=== PATIENT | female | born 1995 | race African-American/Black ===

== ENCOUNTER 2017-01-27 11:50 | Emergency (ER) | payer OTHER ==
[~2017-01-27] VITALS: Ht 165.1 cm; Wt 75.4 kg
[~2017-01-27 11:50] MED LIST: ALPR.25 PO; BENT20TA PO; CYMB60CA PO; NORC5TAB PO; ZOFR4TAB3 SL; birth control pill PO
[2017-01-27 11:57] VITALS: BP 122/81; PULSE 84; RESP 18; TEMP 97.8; O2SAT 97
--- NOTE | 2017-01-27 12:47 | PD ---
HPI Chief Complaint: Musculoskeletal Complaint Time Seen by Provider: 12:47 Travel History International Travel<30 days: No Contact w/Intl Traveler<30days: No Traveled to known affect area: No History of Present Illness HPI 21-year-old Afro-Iraqi female presents the emergency department after being "kicked by a horse" 6 days ago while riding with a friend. The patient was on a horse when the horse bucked and kicked her in the medial foot and ankle. This is the first time the patient sought medical attention for this issue. Patient continues to have pain along the medial ankle and medial arch of the left foot. She can bear weight but with difficulty. Is worse in the morning and if she respiratory. Time. Patient has had it wrapped has been taking over- the-counter analgesia without much improvement. Patient states the pain with ambulation at worst is an 8/10. Currently is 4/10. She is allergic to erythromycin. PFSH Past Medical History Asthma: Yes Anxiety: Yes Depression: Yes Heart Rhythm Problems: Yes ("CARDIO VENTRICULAR TACHYCARDIA") Cardiovascular Problems: Yes ("HEART VALVE PROBLEMS") Diabetes: Yes (DIET CONTROL) Diminished Hearing: No GERD: Yes Hypertension: No (states had it a brief time no meds) Respiratory: Yes (ASTHMA) Integumentary: Yes (ACNE) Immunizations Current: Yes ?: Not LMP: 01/14/17 : 1 Para: 0 Miscarriage: 1 Past Surgical History Oral Surgery: Yes (WISDOM TEETH) Social History Alcohol Use: No Tobacco Use: No Substance Use: No Allergies-Medications (Allergen,Severity, Reaction): Coded Allergies: Erythromycin (Verified Allergy, Severe, " BABY,DON'T REMEMBER ALLERGY" PER MOTHER'S REPORT, 01/27/17) Reported Meds & Prescriptions Reported Meds & Active Scripts Active Reported Cymbalta DR (Duloxetine HCl) 60 Mg Capdr 60 Mg PO HS [ control pill] Unknown Strength Unknown Dose PO DAILY Review of Systems Except as stated in HPI: all other systems reviewed are Neg General / Constitutional: No: Fever Eyes: No: Visual changes HENT: No: Headaches Cardiovascular: No: Chest Pain or Discomfort Respiratory: No: Shortness of Breath Gastrointestinal: No: Abdominal Pain Genitourinary: No: Dysuria Musculoskeletal: No: Pain Skin: No Rash Neurologic: No: Weakness Psychiatric: No: Depression Endocrine: No: Polydipsia Hematologic/Lymphatic: No: Easy Bruising Physical Exam Narrative GENERAL: Patient appears in no acute distress. SKIN: Warm and dry. Normal color. Normal turgor. No significant signs of trauma. HEAD: Atraumatic. Normocephalic. EYES: Pupils equal and round. No scleral icterus. No injection or drainage. ENT: No nasal bleeding or discharge. Mucous membranes pink and moist. Pharynx is normal. NECK: Trachea midline. Supple. CARDIOVASCULAR: Regular rate and rhythm. RESPIRATORY: No accessory muscle use. Clear to auscultation. Breath sounds equal bilaterally. MUSCULOSKELETAL: Extremities without clubbing, cyanosis, or edema. No obvious deformities. Left foot actually appears normal without significant swelling, ecchymosis, or signs of deformity. Patient has pain with palpation along the left medial malleolus extending into the left medial foot and arch. Range of motion of the left ankle and foot is limited secondary to pain. NEUROLOGICAL: Awake and alert. No obvious cranial nerve deficits. Motor grossly within normal limits. Five out of 5 muscle strength in the arms and legs. Normal speech. PSYCHIATRIC: Appropriate mood and affect; insight and judgment normal. Data Data Last Documented VS Vital Signs Date Time Temp Pulse Resp B/P Pulse Ox O2 Delivery O2 Flow Rate FiO2 01/27/17 11:57 97.8 84 18 122/81 97 Orders Ankle, Complete ([id number]) (01/27/17 12:50) Foot, Complete ([id number]) (01/27/17 12:50) Ice/Cold Pack (01/27/17 12:50) [facility] Medical Decision Making Medical Screen Exam Complete: Yes Emergency Medical Condition: Yes Differential Diagnosis Ankle contusion. Foot contusion. Possible fracture. Plantar fasciitis. Narrative Course Patient is medically stable at time of exam. X-rays of the left foot and ankle are obtained. X-ray shows no acute findings per radiologist. Patiently treated for plantar fasciitis. Patient is given ibuprofen 600 mg 4 times a day #40. Patient is given Tylenol 500 mg 2 tabs every 6 hours when necessary pain #60. Patient is to use heat and ice and gentle stretching over the next 2 weeks. Patient is to wear supportive shoes with a proper arch at all times. Patient is to follow with local primary care physician or herbicide sprayer if symptoms continue or worsen. Diagnosis Primary Impression: Contusion of left foot Qualified Code: S90.32XA - Contusion of left foot, initial encounter Additional Impression: Plantar fascia syndrome Referrals: [facility] Primary Care Physician Patient Instructions: General Instructions, Plantar Fasciitis (GEN), Plantar Fasciitis Exercises (GEN) Departure Forms: Work Release Enter return to work date: Jan 28, 2017 Additional Instructions: X-ray shows no acute findings per radiologist. Patiently treated for plantar fasciitis. Patient is given ibuprofen 600 mg 4 times a day #40. Patient is given Tylenol 500 mg 2 tabs every 6 hours when necessary pain #60. Patient is to use heat and ice and gentle stretching over the next 2 weeks. Patient is to wear supportive shoes with a proper arch at all times. Patient is to follow with local primary care physician or herbicide sprayer if symptoms continue or worsen. Med/Other Pt SpecificInfo: Prescription(s) given Disposition: 01 DISCHARGE HOME Condition: Stable Keith Ferro Jan 27, 2017 12:47 Keith Ferro Jan 27, 2017 12:47
--- NOTE | 2017-01-27 13:25 | RADHPO ---
EXAM DATE/TIME: 01/27/2017 13:02 [facility] COMPARISON: No previous studies available for comparison. INDICATIONS : Left ankle pain post horseback riding accident. MEDICAL HISTORY : None. SURGICAL HISTORY : None. ENCOUNTER: Initial ACUITY: 3 days PAIN SCORE: 5/10 LOCATION: Left ankle FINDINGS: 3 views the left ankle demonstrate no fracture or dislocation. Ankle mortise is intact. Mineralizatio n is within normal limits and there is no significant arthropathy. No soft tissue abnormality or radi opaque foreign body is identified. CONCLUSION: No acute left ankle abnormality is identified. Eric Bland MD on January 27, 2017 at 13:23 Board Certified Radiologist. This report was verified electronically.
--- NOTE | 2017-01-27 13:27 | RADHPO ---
EXAM DATE/TIME: 01/27/2017 13:07 [facility] COMPARISON: No previous studies available for comparison. INDICATIONS : Left foot pain post horseback riding accident. MEDICAL HISTORY : None. SURGICAL HISTORY : None. ENCOUNTER: Initial ACUITY: 3 days PAIN SCORE: 5/10 LOCATION: Left foot FINDINGS: Three views of the left foot demonstrate no fracture or dislocation. The Lisfranc joint appears intac t. Mineralization is within normal limits and there is no significant arthropathy. No soft tissue abn ormality or radiopaque foreign body is identified. CONCLUSION: No acute left foot abnormality is identified. Eric Bland MD on January 27, 2017 at 13:24 Board Certified Radiologist. This report was verified electronically.
[2017-01-27] MEDS ORDERED: IBUP-232 PO (13:32)
[2017-01-27] MEDS ORDERED: EXTR500C PO (13:32)
== END 2017-01-27 13:45 | disposition home or self-care (01) ==
LOC: PHEFT 11:50
DX: S90.32XA Contusion of left foot, initial encounter (principal); M72.2 Plantar fascial fibromatosis; J45.909 Unspecified asthma, uncomplicated; F41.8 Other specified anxiety disorders; I47.2 Ventricular tachycardia; V80.010A Animal-rider injured by fall from or being thrown from horse in noncollision accident, initial encounter; Y93.52 Activity, horseback riding; Y92.9 Unspecified place or not applicable; Y99.9 Unspecified external cause status
CPT/HCPCS: 73610; 73630; 99283

== ENCOUNTER 2017-06-22 09:40 | Emergency (ER) | payer OTHER ==
[~2017-06-22] VITALS: Ht 165.1 cm; Wt 71.0 kg
[~2017-06-22 09:40] MED LIST changes: -ALPR.25 PO; -BENT20TA PO; +EXTR500C PO; +IBUP-232 PO; -NORC5TAB PO; -ZOFR4TAB3 SL
[2017-06-22 09:47] VITALS: BP 131/77; PULSE 104; RESP 16; TEMP 98.7; O2SAT 100
[2017-06-22] MEDS ORDERED: ACETAMINOPHEN 500 MG CPLT PO ONE (10:00)
[2017-06-22] MEDS ORDERED: ACETAMINOPHEN/HYDROcodone 325 MG/5 MG TAB PO ONE (10:00)
[2017-06-22] MEDS ORDERED: IBUP-232 PO (10:16)
--- NOTE | 2017-06-22 10:16 | PD ---
HPI Chief Complaint: Injury Time Seen by Provider: 09:55 Travel History International Travel<30 days: No Contact w/Intl Traveler<30days: No Traveled to known affect area: No History of Present Illness HPI 22 yo F c/o L ankle and L knee pain. She was walking on her bed which is about 3 feet off the ground when she accidentally stepped off landing on the floor causing sudden onset right ankle pain and right knee pain as she fell forward onto the right knee. no loc or head trauma. pain is constant and severe. pt states she couldn't walk afterward. PFSH Past Medical History Asthma: Yes Anxiety: Yes Depression: Yes Heart Rhythm Problems: Yes ("CARDIO VENTRICULAR TACHYCARDIA") Cardiovascular Problems: Yes ("HEART VALVE PROBLEMS") Diabetes: Yes (DIET CONTROL) Patient Takes Glucophage: No Diminished Hearing: No GERD: Yes Hypertension: Yes (states had it a brief time no meds) Respiratory: Yes (ASTHMA) Integumentary: Yes (ACNE) Immunizations Current: Yes Tetanus Vaccination: < 5 Years Influenza Vaccination: Yes ?: Not LMP: 05/29/17 : 1 Para: 0 Miscarriage: 1 Past Surgical History Oral Surgery: Yes (WISDOM TEETH) Social History Alcohol Use: No Tobacco Use: Yes (1/2 PPD) Substance Use: No Allergies-Medications (Allergen,Severity, Reaction): Coded Allergies: Erythromycin (Verified Allergy, Unknown, Unknown, 06/22/17) Patient's mother told her she had a reaction as an . Reported Meds & Prescriptions Reported Meds & Active Scripts Active Ibuprofen 600 Mg Tab 600 Mg PO Q6H PRN Review of Systems General / Constitutional: No: Fever Musculoskeletal: Positive: Pain Physical Exam Narrative GENERAL: 22 yo F, WNWD, milder moderate distress 2/2 pain and or anxiety SKIN: Warm and dry. Trace abrasion overlying right patella. HEAD: Normocephalic. GASTROINTESTINAL: Abdomen soft, non-tender, nondistended. MUSCULOSKELETAL: No cyanosis, or edema. Swelling tenderness overlying R malleolus. Minimal tenderness overlying the right patella. 2+ dorsalis pedis bilaterally. The patient involuntarily flex and extend her toes on both sides. Data Data Last Documented VS Vital Signs Date Time Temp Pulse Resp B/P Pulse Ox O2 Delivery O2 Flow Rate FiO2 06/22/17 09:47 98.7 104 16 131/77 100 vs reviewed Orders Acetaminophen (Tylenol) (06/22/17 10:00) Acetamin-Hydrocod 325-5 Mg ([place] 5-325 (06/22/17 10:00) Ankle, Complete ([id number]) (06/22/17 09:58) Knee, Complete (4vws) (06/22/17 09:58) Splint Or Brace Apply/Monitor (06/22/17 11:08) Brace Ankle Stirrup (06/22/17 ) MDM Medical Decision Making Medical Screen Exam Complete: Yes Emergency Medical Condition: Yes Medical Record Reviewed: Yes Differential Diagnosis ankle fracture, contusion, knee fracture Narrative Course Last 24 hours Impressions Knee X-Ray 06/22/17957 Signed Impressions: Service Date/Time: Thursday, June 22, 2017 10:16 - CONCLUSION: Unremarkable examination of the right knee. Corey Crespo Jr., MD Ankle X-Ray 06/22/17957 Signed Impressions: Service Date/Time: Thursday, June 22, 2017 10:06 - CONCLUSION: Unremarkable examination of the right ankle. Corey Crespo Jr., MD Imaging reassuring. Stir-up splint applied. Return precautions discussed. Work note provided at patient's request. Diagnosis Primary Impression: Strain of ankle, right Qualified Code: S96.911A - Strain of ankle, right, initial encounter Additional Impression: Patellar contusion Qualified Code: S80.01XA - Patellar contusion, right, initial encounter Referrals: Orthopaedic Surgeon 2 days Additional Instructions: You have a choice when it comes to health care, and we are glad that you chose [facility]. Hopefully, we have met your expectations on today's visit. You are welcome to return to [facility] at any time, as we are committed to meeting the health care needs of our community. Med/Other Pt SpecificInfo: Prescription(s) given Scripts Ibuprofen 600 Mg [id number] Mg PO Q6H PRN (Pain/Inflammation) #40 TAB Prov:Gurinder Ramos MD 06/22/17 Disposition: 01 DISCHARGE HOME Condition: Stable Gurinder Ramos MD Jun 22, 2017 10:16
--- NOTE | 2017-06-22 11:17 | RADRPT ---
EXAM DATE/TIME: 06/22/2017 10:06 [facility] COMPARISON: No previous studies available for comparison. INDICATIONS : Patient fell complains of pain lateral side of Right ankle MEDICAL HISTORY : Diabetes mellitus type II. SURGICAL HISTORY : None. ENCOUNTER: Initial ACUITY: 1 day PAIN SCORE: 10/10 LOCATION: Right lateral ankle FINDINGS: Three view exam was performed of the right ankle. The bony structures are in normal alignment. No e vidence of fracture, dislocation, or soft tissue swelling. The ankle mortise is intact. No radiopaq ue foreign bodies are seen. Bony mineralization is normal. CONCLUSION: Unremarkable examination of the right ankle. Corey Crespo Jr., MD on June 22, 2017 at 11:16 Board Certified Radiologist. This report was verified electronically.
--- NOTE | 2017-06-22 11:18 | RADRPT ---
EXAM DATE/TIME: 06/22/2017 10:16 [facility] COMPARISON: No previous studies available for comparison. INDICATIONS : Right knee pain after a fall MEDICAL HISTORY : Diabetes mellitus type II. SURGICAL HISTORY : None. ENCOUNTER: Initial ACUITY: 1 day PAIN SCORE: 10/10 LOCATION: Right Knee FINDINGS: Four view examination of the right knee demonstrates no evidence of fracture or dislocation. Bony mi neralization is normal. The articular surfaces are intact. The suprapatellar soft tissues have a no rmal configuration. CONCLUSION: Unremarkable examination of the right knee. Corey Crespo Jr., MD on June 22, 2017 at 11:16 Board Certified Radiologist. This report was verified electronically.
== END 2017-06-22 11:32 | disposition home or self-care (01) ==
LOC: PHED 09:40
DX: S96.911A Strain of unspecified muscle and tendon at ankle and foot level, right foot, initial encounter (principal); S80.01XA Contusion of right knee, initial encounter; E11.9 Type 2 diabetes mellitus without complications; I10 Essential (primary) hypertension; F17.200 Nicotine dependence, unspecified, uncomplicated; Z87.09 Personal history of other diseases of the respiratory system; Z86.59 Personal history of other mental and behavioral disorders; Z86.79 Personal history of other diseases of the circulatory system; Z87.19 Personal history of other diseases of the digestive system; W17.89XA Other fall from one level to another, initial encounter
CPT/HCPCS: 73564; 73610; 99284; L1906

== ENCOUNTER 2017-10-29 13:02 | Emergency (ER) | payer OTHER ==
[~2017-10-29] VITALS: Ht 162.6 cm; Wt 73.4 kg
[~2017-10-29 13:02] MED LIST changes: -CYMB60CA PO; -EXTR500C PO; -birth control pill PO
[2017-10-29 13:08] VITALS: BP 131/71; PULSE 90; RESP 18; TEMP 99.3; O2SAT 100
[2017-10-29 13:25] LABS: GLUCOSE,URINE NEG (NEG); KETONE, URINE NEG (NEG); NITRITE,URINE NEG (NEG)
[2017-10-29 13:30] LABS: BLOOD, URINE TRACE (NEG)
[2017-10-29 13:33] LABS: METHOD OF COLLECTION CLEAN CATCH; RBC, URINE 0-3 /hpf (0-3); URINE COLOR YELLOW (YELLW/STRAW)
[2017-10-29 13:34] LABS: BACTERIA, URINE FEW /hpf; COMMENT (UR) CULT NOT INDICATED; COMMENT2 (UR) MUCOUS PRESENT; CULTURE IF INDICATED CULT NOT INDICATED
--- NOTE | 2017-10-29 13:55 | PD ---
HPI Chief Complaint: Abdominal Pain Time Seen by Provider: 13:36 Travel History International Travel<30 days: No Contact w/Intl Traveler<30days: No Traveled to known affect area: No History of Present Illness HPI The patient was seen and examined in the presence of the nurse. This patient reports that she missed her last 2 menstrual periods. She thinks she is . He's had some pelvic cramping for one day and some nausea and vomiting as well. She said 5 episodes of diarrhea today. Denies vaginal bleeding. No fever. Symptoms severity is moderate. No alleviating factors. No exacerbating factors. PFSH Past Medical History Asthma: Yes Anxiety: Yes Depression: Yes Heart Rhythm Problems: Yes ("CARDIO VENTRICULAR TACHYCARDIA") Cardiovascular Problems: Yes ("HEART VALVE PROBLEMS") Diabetes: Yes (DIET CONTROL) Patient Takes Glucophage: No Diminished Hearing: No GERD: Yes Hypertension: Yes (states had it a brief time no meds) Respiratory: Yes (ASTHMA) Integumentary: Yes (ACNE) Immunizations Current: Yes Influenza Vaccination: No ?: Unknown LMP: 09/2017 : 1 Para: 0 Miscarriage: 1 Past Surgical History Oral Surgery: Yes (WISDOM TEETH) Social History Alcohol Use: No Tobacco Use: Yes (1/2 PPD) Substance Use: No Allergies-Medications (Allergen,Severity, Reaction): Coded Allergies: erythromycin base (Unverified Allergy, Unknown, Unknown, 10/29/17) Patient's mother told her she had a reaction as an . Reported Meds & Prescriptions Reported Meds & Active Scripts Active No Active Prescriptions or Reported Medications Review of Systems General / Constitutional: No: Fever Eyes: No: Visual changes HENT: No: Headaches Cardiovascular: No: Chest Pain or Discomfort Respiratory: No: Shortness of Breath Gastrointestinal: No: Abdominal Pain Genitourinary: Positive: Pelvic Pain, Discharge, No: Dysuria Musculoskeletal: No: Pain Skin: No Rash Neurologic: No: Weakness Psychiatric: No: Depression Endocrine: No: Polydipsia Hematologic/Lymphatic: No: Easy Bruising Physical Exam Narrative GENERAL: Well-nourished, well-developed patient in no apparent distress. SKIN: Focused skin assessment reveals no rash and nodules. Skin is Warm and dry. HEAD: Atraumatic. Normocephalic. EYES: Pupils equal and round. No scleral icterus. No injection or drainage. ENT: No nasal bleeding or discharge. Mucous membranes pink and moist. NECK: Trachea midline. No JVD. CARDIOVASCULAR: Regular rate and rhythm. No murmur appreciated. RESPIRATORY: No accessory muscle use. Clear to auscultation. Breath sounds equal bilaterally. GASTROINTESTINAL: Abdomen soft, non-tender, nondistended. Hepatic and splenic margins not palpable. MUSCULOSKELETAL: No obvious deformities. No clubbing. No cyanosis. No edema. NEUROLOGICAL: Awake and alert. No obvious cranial nerve deficits. Motor grossly within normal limits. Normal speech. PSYCHIATRIC: Appropriate mood and affect; insight and judgment normal. Pelvic: Speculum exam reveals no blood. No cervical motion tenderness. No adnexal mass or tenderness. There is a scant bit of whitish discharge. Samples obtained Data Data Last Documented VS Vital Signs Date Time Temp Pulse Resp B/P (MAP) Pulse Ox O2 Delivery O2 Flow Rate FiO2 10/29/17 15:17 86 18 119/61 (80) 100 Room Air 10/29/17 13:08 99.3 Orders Orders Urinalysis - C+S If Indicated (10/29/17 13:17) Ed Urine Pregnancytest Poc (10/29/17 13:17) Beta Hcg (Quant/Titer) (10/29/17 13:44) Complete Blood Count With Diff (10/29/17 13:44) Wet Prep Profile (10/29/17 13:55) Gc And Chlamydia Pcr (10/29/17 13:55) Us Pelvis (Ques Pr/Ect)W Trans (10/29/17 ) Ed Discharge Order (10/29/17 16:37) Labs Laboratory Tests Test 10/29/17 13:15 10/29/17 13:55 10/29/17 14:00 Urine Collection Type CLEAN CATCH Urine Color YELLOW Urine Turbidity SLIGHT Urine pH 7.0 Urine Specific [place] 1.023 Urine Protein NEG mg/dL Urine Glucose (UA) NEG mg/dL Urine Ketones NEG mg/dL Urine Occult Blood TRACE Urine Nitrite NEG Urine Bilirubin NEG Urine Leukocyte Esterase NEG Urine RBC 0-3 /hpf Urine Squamous Epithelial Cells 6-8 /hpf Urine Amorphous Sediment MOD Urine Bacteria FEW /hpf Microscopic Urinalysis Comment CULT NOT INDICATED Urine Collection Time 1.023 Clue Cells (Wet Prep) NONE SEEN Vaginal Trichomonas (Wet Prep) NONE SEEN Vaginal Yeast (Wet Prep) NONE SEEN White Blood Count 6.1 TH/MM3 Red Blood Count 3.67 MIL/MM3 Hemoglobin 11.1 GM/DL Hematocrit 33.8 % Mean Corpuscular Volume 92.2 FL Mean Corpuscular Hemoglobin 30.2 PG Mean Corpuscular Hemoglobin Concent 32.8 % Red Cell Distribution Width 14.3 % Platelet Count 226 TH/MM3 Mean Platelet Volume 7.7 FL Neutrophils (%) (Auto) 58.6 % Lymphocytes (%) (Auto) 30.6 % Monocytes (%) (Auto) 6.6 % Eosinophils (%) (Auto) 2.2 % Basophils (%) (Auto) 2.0 % Neutrophils # (Auto) 3.6 TH/MM3 Lymphocytes # (Auto) 1.9 TH/MM3 Monocytes # (Auto) 0.4 TH/MM3 Eosinophils # (Auto) 0.1 TH/MM3 Basophils # (Auto) 0.1 TH/MM3 CBC Comment DIFF FINAL Differential Comment Human Chorionic Gonadotropin, Quant 7586 MIU/ML MDM Medical Decision Making Medical Screen Exam Complete: Yes Emergency Medical Condition: Yes Medical Record Reviewed: Yes Differential Diagnosis Ectopic, PID, miscarriage Narrative Course I have reviewed the patient's electronic medical record. Patient was here 2 years ago with twins I did a bedside transabdominal ultrasound. However I cannot definitively identify an intrauterine fetus. There is a vague partial ringlike structure but I can't certain and therefore we need further workup. Urine is positive CBC is normal except minor anemia Beta hCG is 7800 Wet prep is negative GC and Chlamydia sent Formal radiology transvaginal ultrasound reveals an early IUP type findings. On recheck she is clinically well. Stable for outpatient OB follow-up Some Phenergan written to use as needed. Warned her about sedation and the category C nature of this medication. She accepts risk and would like prescription to use if needed Diagnosis Primary Impression: Pelvic pain affecting in first trimester, antepartum Additional Impression: Vomiting Qualified Codes: R11.2 - Nausea with vomiting, unspecified Additional Instructions: The patient was advised to follow up with their physician and return if they worsen. The patient was warned about potential sedation for the medications they will receive on prescription. Med/Other Pt SpecificInfo: Prescription(s) given Scripts No Active Prescriptions or Reported Meds Disposition: 01 DISCHARGE HOME Condition: Stable Chris Ascencio MD Oct 29, 2017 13:55
[2017-10-29 14:08] LABS: AUTOMATED NEUTROPHIL # 3.6 TH/MM3 (1.8-7.7); BASOPHIL # 0.1 TH/MM3 (0-0.2); EOSINOPHIL # 0.1 TH/MM3 (0-0.4); EOSINOPHIL % 2.2 % (0.0-4.0); HEMATOCRIT 33.8 % (35.0-46.0); HEMO FLAGS DIFF FINAL; LYMPH % 30.6 % (9.0-44.0); LYMPHOCYTE # 1.9 TH/MM3 (1.0-4.8); MEAN CELL VOLUME 92.2 FL (80.0-100.0); MEAN CORPUSCULAR HEMOGLOBIN 30.2 PG (27.0-34.0); MEAN CORPUSCULAR HGB CONC 32.8 % (32.0-36.0); MONO % 6.6 % (0.0-8.0); NEUT % 58.6 % (16.0-70.0); PLATELET COUNT 226 TH/MM3 (150-450); RED BLOOD COUNT 3.67 MIL/MM3 (4.00-5.30); RED CELL DISTRIBUTION WIDTH 14.3 % (11.6-17.2); WHITE BLOOD COUNT 6.1 TH/MM3 (4.0-11.0)
[2017-10-29 14:39] LABS: BETA HCG QUANT 7586 MIU/ML (0-5)
[2017-10-29 15:17] VITALS: BP 119/61; PULSE 86; RESP 18; O2SAT 100
--- NOTE | 2017-10-29 16:09 | RADRPT ---
EXAM DATE/TIME: 10/29/2017 15:22 [facility] COMPARISON: US PELVIS (QUEST PREG/ECTOPIC) W/TRANSVAG, April 28, 2015, 16:17. INDICATIONS : Pelvic cramping. LAB(S): Beta-hC MEDICAL HISTORY : Carcinoma, not otherwise specified. Heart rhythm problems. Heart valve problems. Diabetic. ARLYN D. SURGICAL HISTORY : None. ENCOUNTER: Subsequent ACUITY: 1 day PAIN SCORE: 4/10 LOCATION: Bilateral pelvis MEASUREMENTS: UTERUS: 10.4 x 7.1 x 4.8 cm ENDOMETRIAL STRIPE: 9 mm RIGHT OVARY: 2.8 x 3.1 x 1.2 cm LEFT OVARY: 2.9 x 2.4 x 1.8 cm cm FREE FLUID: Yes CROWN RUMP LENGTH: 0.20 cm = 5 WKS 5 DAYS FHR: 101 BPM FINDINGS: UTERUS: The myometrium has homogeneous echotexture without mass. There is a single intrauterine gestational sac identified that contains a yolk sac. Gestational sac measures 1.09 x 0.62 x 1.08 cm. Questionable embryo is identified with crown-rump length measurement of 0.2 cm. RIGHT OVARY: Ovary contains no mass or significant cystic lesion. There is a suspected corpus luteal cyst present . LEFT OVARY: Ovary contains no mass or significant cystic lesion. MISCELLANEOUS: No free fluid. CONCLUSION: 1. There are findings consistent with an early intrauterine with gestational sac containing a yolk sac identified. A possible embryo is identified as well. Suggest followup to ensure appropria te progression of . 2. Otherwise, no abnormality is identified. Eric Bland MD on October 29, 2017 at 16:05 Board Certified Radiologist. This report was verified electronically.
[2017-10-30 03:24] LABS: CHLAMYDIA PCR INVALID (NOT DETECT)
[2017-10-30 03:25] LABS: NEISSERIA PCR INVALID (NOT DETECT)
== END 2017-10-29 16:48 | disposition home or self-care (01) ==
LOC: PHED 13:02
DX: O26.891 Other specified pregnancy related conditions, first trimester (principal); R10.2 Pelvic and perineal pain; O21.9 Vomiting of pregnancy, unspecified; Z3A.00 Weeks of gestation of pregnancy not specified
CPT/HCPCS: 76700; 76817; 81001; 84702; 84703; 85025; 87210; 87491; 87591; 99284

== ENCOUNTER 2017-11-30 10:48 | Emergency (ER) | payer OTHER ==
[2017-11-30 10:50] VITALS: BP 127/75; PULSE 86; RESP 14; TEMP 99.1; O2SAT 98
[2017-11-30 12:12] LABS: AUTOMATED NEUTROPHIL # 2.1 TH/MM3 (1.8-7.7); BASOPHIL % 0.7 % (0.0-2.0); EOSINOPHIL # 0.1 TH/MM3 (0-0.4); HEMATOCRIT 33.6 % (35.0-46.0); HEMOGLOBIN 11.2 GM/DL (11.6-15.3); LYMPH % 45.2 % (9.0-44.0); LYMPHOCYTE # 2.2 TH/MM3 (1.0-4.8); MEAN CELL VOLUME 91.9 FL (80.0-100.0); MEAN CORPUSCULAR HEMOGLOBIN 30.6 PG (27.0-34.0); MEAN CORPUSCULAR HGB CONC 33.3 % (32.0-36.0); MEAN PLATELET VOLUME 8.1 FL (7.0-11.0); MONO % 9.1 % (0.0-8.0); MONOCYTE # 0.5 TH/MM3 (0-0.9); PLATELET COUNT 203 TH/MM3 (150-450); RED BLOOD COUNT 3.66 MIL/MM3 (4.00-5.30); RED CELL DISTRIBUTION WIDTH 14.3 % (11.6-17.2)
[2017-11-30 12:31] LABS: ALBUMIN 3.3 GM/DL (3.4-5.0); ALT (GPT) 36 U/L (10-53); AST (GOT) 25 U/L (15-37); BICARBONATE 25.9 MEQ/L (21.0-32.0); BLOOD UREA NITROGEN 8 MG/DL (7-18); CALCIUM 8.2 MG/DL (8.5-10.1); CHLORIDE 106 MEQ/L (98-107); GLOMERULAR FILTRATION RATE 150 ML/MIN (>89); GLUCOSE,RANDOM 75 MG/DL (74-106); SODIUM (NA) 139 MEQ/L (136-145)
[2017-11-30 12:44] LABS: BANDS 1 % (0-6); LYMPHOCYTES 34 % (9-44); MONOCYTES 12 % (0-8); NEUTROPHIL # MANUAL DIFF 2.4 TH/MM3 (1.8-7.7); POLYS (SEG NEUTROPHILS) 46 % (16-70)
[2017-11-30 12:48] LABS: ALKALINE PHOSPHATASE 59 U/L (45-117); TOTAL BILIRUBIN ADULT 0.3 MG/DL (0.2-1.0)
[2017-11-30] MEDS ORDERED: PREN29TA PO (15:04)
[2017-11-30] MEDS ORDERED: ZOFR4TAB3 SL (15:36)
== END 2017-11-30 13:31 | disposition left against medical advice (07) ==
LOC: NED 10:48
DX: Z34.90 Encounter for supervision of normal pregnancy, unspecified, unspecified trimester (principal); Z53.21 Procedure and treatment not carried out due to patient leaving prior to being seen by health care provider
CPT/HCPCS: 80053; 84702; 85007; 85027

== ENCOUNTER 2017-11-30 14:50 | Emergency (ER) | payer OTHER, MEDICAID ==
[~2017-11-30] VITALS: Ht 165.1 cm; Wt 74.0 kg
[2017-11-30 14:53] VITALS: BP 117/56; PULSE 93; RESP 16; TEMP 99; O2SAT 99
[2017-11-30] MEDS ORDERED: PREN29TA PO (15:04)
[2017-11-30 15:19] LABS: BILIRUBIN, URINE NEG (NEG); GLUCOSE,URINE NEG (NEG); KETONE, URINE TRACE mg/dL (NEG); NITRITE,URINE NEG (NEG); PH, URINE 6.5 (5.0-8.5); URINE LEUKOCYTE ESTERASE NEG (NEG)
[2017-11-30 15:22] LABS: BLOOD, URINE TRACE (NEG)
[2017-11-30 15:26] LABS: URINE COLOR YELLOW (YELLW/STRAW)
[2017-11-30 15:27] LABS: MUCUS URINE MOD /lpf (OCC)
[2017-11-30 15:28] LABS: RBC, URINE 0-3 /hpf (0-3); SQUAMOUS EPITHELIAL CELL URINE > 8 /hpf (0-5); WBC, URINE 0-2 /hpf (0-5)
[2017-11-30] MEDS ORDERED: ONDANSETRON HCL 4 MG/2 ML VIAL IV PUSH ONE (15:30)
[2017-11-30] MEDS ORDERED: SODIUM CHLOR 0.9% 1000 ML INJ 1,000 ML IV ONE ×2 (15:30)
--- NOTE | 2017-11-30 15:31 | PD ---
HPI Chief Complaint: Related Problem Time Seen by Provider: 15:28 Travel History International Travel<30 days: No Contact w/Intl Traveler<30days: No Traveled to known affect area: No History of Present Illness HPI This 22-year-old female is complaining of nausea and vomiting. She is 12 weeks . She has some generalized abdominal pain. She has nausea. She says she has not been able to hold anything down today. She has taken Zofran in the past with success. She does not have any now. she has had 1 previous and had a miscarriage of twins at 17 weeks. There has not been any bleeding or vaginal discharge PFSH Past Medical History Asthma: Yes Anxiety: Yes Depression: Yes Heart Rhythm Problems: Yes ("CARDIO VENTRICULAR TACHYCARDIA") Cardiovascular Problems: Yes ("HEART VALVE PROBLEMS") Diabetes: Yes (DIET CONTROL) Patient Takes Glucophage: No Diminished Hearing: No GERD: Yes Hypertension: Yes Respiratory: Yes (ASTHMA) Integumentary: Yes (ACNE) Immunizations Current: Yes Influenza Vaccination: No ?: LMP: 08/2017 : 1 Para: 0 Miscarriage: 1 Past Surgical History Oral Surgery: Yes (WISDOM TEETH) Social History Alcohol Use: No Tobacco Use: Yes (/2 PPD) Substance Use: No Allergies-Medications (Allergen,Severity, Reaction): Coded Allergies: erythromycin base (Unverified Allergy, Unknown, Unknown, 11/30/17) Patient's mother told her she had a reaction as an infant. Reported Meds & Prescriptions Reported Meds & Active Scripts Active Zofran Odt (Ondansetron Odt) 4 Mg Tab 4 Mg SL Q6HR PRN Reported Plus Iron 29-1 mg ( Vit-Iron Carbonyl) 29 Mg Iron-1 Mg Tab 1 Tab PO DAILY Review of Systems General / Constitutional: No: Fever, Chills HENT: Positive: Headaches Cardiovascular: No: Chest Pain or Discomfort, Palpitations Respiratory: No: Cough, Shortness of Breath Gastrointestinal: Positive: Nausea, Vomiting, No: Diarrhea Genitourinary: No: Dysuria, Dribbling Musculoskeletal: No: Myalgias Skin: No Rash Physical Exam Narrative GENERAL: Well-developed female SKIN: Focused skin assessment warm/dry. HEAD: Atraumatic. Normocephalic. EYES: Pupils equal and round. No scleral icterus. No injection or drainage. ENT: No nasal bleeding or discharge. Mucous membranes pink and moist. NECK: Trachea midline. No JVD. CARDIOVASCULAR: Regular rate and rhythm. No murmur appreciated. RESPIRATORY: No accessory muscle use. Clear to auscultation. Breath sounds equal bilaterally. GASTROINTESTINAL: Abdomen soft, non-tender, nondistended. Hepatic and splenic margins not palpable. MUSCULOSKELETAL: No obvious deformities. No clubbing. No cyanosis. No edema. NEUROLOGICAL: Awake and alert. No obvious cranial nerve deficits. Motor grossly within normal limits. Normal speech. PSYCHIATRIC: Appropriate mood and affect; insight and judgment normal. Data Data Last Documented VS Vital Signs Date Time Temp Pulse Resp B/P (MAP) Pulse Ox O2 Delivery O2 Flow Rate FiO2 11/30/17 14:53 99.0 93 16 117/56 (76) 99 Orders Orders Urinalysis - C+S If Indicated (11/30/17 15:10) Basic Metabolic Panel (Bmp) (11/30/17 15:28) Ns (Bolus) Inj (11/30/17 15:30) Sodium Chlor 0.9% 1000 Ml Inj (Ns 1000 M (11/30/17 15:30) Ondansetron Inj (Zofran Inj) (11/30/17 15:30) Labs Laboratory Tests Test 11/30/17 15:10 11/30/17 15:30 Urine Color YELLOW Urine Turbidity CLEAR Urine pH 6.5 Urine Specific [place] GREATER THAN 1.035 Urine Protein NEG mg/dL Urine Glucose (UA) NEG mg/dL Urine Ketones TRACE mg/dL Urine Occult Blood TRACE Urine Nitrite NEG Urine Bilirubin NEG Urine Leukocyte Esterase NEG Urine RBC 0-3 /hpf Urine WBC 0-2 /hpf Urine Squamous Epithelial Cells > 8 /hpf Urine Mucus MOD /lpf Microscopic Urinalysis Comment CULT NOT INDICATED Blood Urea Nitrogen 10 MG/DL Creatinine 0.59 MG/DL Random Glucose 92 MG/DL Calcium Level 8.3 MG/DL Sodium Level 137 MEQ/L Potassium Level 3.6 MEQ/L Chloride Level 106 MEQ/L Carbon Dioxide Level 23.5 MEQ/L Anion Gap 8 MEQ/L Estimat Glomerular Filtration Rate 153 ML/MIN [facility] Medical Decision Making Medical Screen Exam Complete: Yes Emergency Medical Condition: Yes Medical Record Reviewed: Yes Differential Diagnosis Differential includes gastroenteritis, nausea and vomiting of Narrative Course Patient was at [place] yesterday and had lab work done which showed a hemoglobin 11.2 and a white count of 5000. Her beta titer then was 59,881. She had an ultrasound here early in which showed an intrauterine . She has been given IV fluids and Zofran. Urine specific gravity is greater than 1.035 and she does have trace ketones. There is no urinary tract infection Diagnosis Primary Impression: Nausea/vomiting in Scripts Ondansetron Odt (Zofran Odt) 4 Mg Tab 4 MG SL Q6HR Y for Nausea/Vomiting, #20 TAB 0 Refills Prov: Adam Lance MD 11/30/17 Disposition: 01 DISCHARGE HOME Condition: Stable Adam Lance MD Nov 30, 2017 15:31
[2017-11-30] MEDS ORDERED: ZOFR4TAB3 SL (15:36)
[2017-11-30 15:52] LABS: BICARBONATE 23.5 MEQ/L (21.0-32.0); CALCIUM 8.3 MG/DL (8.5-10.1)
[2017-11-30 15:56] LABS: CREATININE 0.59 MG/DL (0.50-1.00)
[2017-11-30 17:15] VITALS: BP 112/68
== END 2017-11-30 17:22 | disposition home or self-care (01) ==
LOC: PHED 14:50
DX: O21.9 Vomiting of pregnancy, unspecified (principal); O16.1 Unspecified maternal hypertension, first trimester; O24.911 Unspecified diabetes mellitus in pregnancy, first trimester; O99.611 Diseases of the digestive system complicating pregnancy, first trimester; K21.9 Gastro-esophageal reflux disease without esophagitis; O99.511 Diseases of the respiratory system complicating pregnancy, first trimester; J45.909 Unspecified asthma, uncomplicated; O99.331 Smoking (tobacco) complicating pregnancy, first trimester; Z3A.12 12 weeks gestation of pregnancy
CPT/HCPCS: 80048; 81001; 96361; 96374; 99284; J2405; J7030